=== PATIENT | male | born 1980 | race Two or more races ===

== ENCOUNTER 2025-08-30 18:38 | Emergency (ER) | payer OTHER, BC ==
[~2025-08-30] VITALS: Ht 182.9 cm; Wt 176.2 kg
[2025-08-30 19:28] LABS: Hematocrit 44.6 % (41.0-53.0); Hemoglobin 15.8 g/dL (13.5-17.5); Mean Corpuscular Hemoglobin 31.2 pg (28.0-32.0); Mean Corpuscular Volume 88.0 fL (80.0-100.0); Nucleated Red Blood Cells % 0.3 %
--- NOTE | 2025-08-30 19:30 | DVH ---
CHEST RADIOGRAPH INDICATION: hemoptysis cough TECHNIQUE: Single frontal view of the chest was obtained COMPARISON: None FINDINGS/IMPRESSION: The lungs are clear. The cardiomediastinal silhouette is unremarkable. No pleural effusion or pneumothorax. No acute osseous abnormality. The lateral aspect of the left lower lung is excluded from field of view.
[2025-08-30 19:37] LABS: Chloride 106 mmol/L (98-107); Potassium 4.1 mmol/L (3.5-5.1); Sodium 141 mmol/L (136-145)
[2025-08-30 19:38] LABS: Anion Gap 11 (5-15); Calcium 9.2 mg/dL (8.7-10.4); Carbon Dioxide 24 mmol/L (20-31)
[2025-08-30 19:42] LABS: INR 0.97 (0.9-1.15); Partial Thromboplastin Time 29.6 SEC (24.5-34.5); Prothrombin Time 10.3 sec (9.3-11.8)
[2025-08-30 19:43] LABS: BUN/Creatinine Ratio 9.0 (10.0-20.0); Glucose 104 mg/dL (74-106)
[2025-08-30 19:44] LABS: Blood Urea Nitrogen 9 mg/dL (9-23)
--- NOTE | 2025-08-30 19:46 | ED.PDOC ---
History of Present Illness HPI Comments 45 y/o morbidly obese M presents with c/c of productive cough with bloody sputum production. Patient reports having productive cough with nasal congestion since 08/24/25. Last night and today, patient reports on coughing up bright-red, bloody sputum. Denies any shortness of breath, fever, chills, or further acute symptoms. No relief with [id number] cough medications. No history of prior respiratory diseases. Current nicotine vape and former tobacco cigarette user Chief Complaint: Cough Time Seen by MD: 18:50 Reviewed Notes: Nurses Notes, Medications, Allergies Allergies: Coded Allergies: NO KNOWN ALLERGIES (Unverified , 08/30/25) Home Meds Active Scripts Promethazine-Dm (Promethazine Dm 6.25-15 mg/5Ml) 1 Danay Danay, 5 ML PO Q6HP PRN, #100 ML Prov:CURT NIÑO MD 08/30/25 Prednisone (Prednisone) 20 Mg Tab, 20 MG PO BID for 4 Days, #8 TAB Prov:CURT NIÑO MD 08/30/25 Azithromycin (Azithromycin) 500 Mg Tab, 1 TAB PO DAILY for 5 Days, #5 TAB Prov:CURT NIÑO MD 08/30/25 Albuterol Sulfate (Albuterol Sulfate Hfa) 108 Mcg/Act Aer, 108 MCG IN Q6HP PRN, #1 AER Prov:CURT NIÑO MD 08/30/25 Information Source: Patient Mode of Arrival: Ambulatory Severity: Moderate Timing: Days Duration: Since onset Prehospital treatment: None Past Medical History PAST MEDICAL HISTORY: Denies Surgical History: Denies all surgeries Social History Smoker: Other (current nicotine vape user, former tobacco cigarette user ) Alcohol: Denies ETOH Use Drugs: Denies Drug Use All Other Systems: Reviewed and Negative (As per HPI) Physical Exam General Appearance: Mild Distress, Obese HEENT: Normal ENT Inspection (nasal congestion ), Pharynx Normal, TMs Normal, Other Neck: Full Range of Motion, Non-Tender, Normal, Normal Inspection Respiratory: Chest Non-Tender, Lungs Clear, No Accessory Muscle Use, No Respiratory Distress, Normal Breath Sounds Cardiovascular: No Edema, No JVD, No Murmur, No Gallop, Normal Peripheral Pulses, Regular Rate/Rhythm Breast Exam: Deferred Gastrointestinal: No Organomegaly, Non Tender, No Pulsatile Mass, Normal Bowel Sounds, Soft Genitalia: Deferred Pelvic: Deferred Rectal: Deferred Extremities: No calf tenderness, Normal capillary refill, Normal inspection, Normal range of motion, Non-tender, No pedal edema Musculoskeletal : Apperance: Normal Neurologic: Alert, clinical trials specialist II-XII nml as Tested, No Motor Deficits, Normal Affect, Normal Mood, No Sensory Deficits Cerebellar Function: Normal Reflexes: Normal Skin: Dry, Normal Color, Warm Lymphatic: No Adenopathy Was a procedure done? Was a procedure done?: No Differential Dx Considerations may include: URI, PNA, viral, PE, ACS, NC, among others X-Ray, Labs, Meds, VS Vital Signs Date Time Temp Pulse Resp B/P (MAP) Pulse Ox O2 Delivery O2 Flow Rate FiO2 08/30/25 20:33 Room Air* 0 21 08/30/25 20:33 98.7 86 16 131/86 (101) 95 98.7 08/30/25 18:39 98.8 80 20 134/98 95 98.8 Lab Test 08/30/25 19:08 Range/Units White Blood Count 8.9 4.4-10.8 10^3/uL Red Blood Count 5.06 4.5-5.90 10^6/uL Hemoglobin 15.8 13.5-17.5 g/dL Hematocrit 44.6 41.0-53.0 % Mean Corpuscular Volume 88.0 80.0-100.0 fL Mean Corpuscular Hemoglobin 31.2 28.0-32.0 pg Mean Corpuscular Hemoglobin Concent 35.5 32.0-36.0 g/dL Red Cell Distribution Width 12.7 11.8-14.3 % Platelet Count 234 140-450 10^3/uL Mean Platelet Volume 6.0 L 6.9-10.8 fL Neutrophils (%) (Auto) 70.1 37.0-80.0 % Lymphocytes (%) (Auto) 18.7 10.0-50.0 % Monocytes (%) (Auto) 8.4 0.0-12.0 % Eosinophils (%) (Auto) 2.6 0.0-7.0 % Basophils (%) (Auto) 0.2 0.0-2.0 % Neutrophils # (Auto) 6.3 1.6-8.6 10 ^3/uL Lymphocytes # (Auto) 1.7 0.4-5.4 10 ^3/uL Monocytes # (Auto) 0.7 0-1.3 10 ^3/uL Eosinophils # (Auto) 0.2 0-0.8 10 ^3/uL Basophils # (Auto) 0 0-0.2 10 ^3/uL Nucleated Red Blood Cells 0.3 % Prothrombin Time 10.3 9.3-11.8 sec Prothrombin Time INR 0.97 0.9-1.15 Activated Partial Thromboplast Time 29.6 24.5-34.5 SEC Sodium Level 141 136-145 mmol/L Potassium Level 4.1 3.5-5.1 mmol/L Chloride Level 106 98-107 mmol/L Carbon Dioxide Level 24 20-31 mmol/L Anion Gap 11 5-15 Blood Urea Nitrogen 9 9-23 mg/dL Creatinine 1.00 0.700-1.30 mg/dL Glomerular Filtration Rate Calc 93 >90 mL/min BUN/Creatinine Ratio 9.0 L 10.0-20.0 Serum Glucose 104 74-106 mg/dL Calcium Level 9.2 8.7-10.4 mg/dL Current Medications Medications (Trade) Dose Ordered Sig/Cady Route Start Time Stop Time Status Last Admin Prednisone 20 mg ONCE ONCE PO 08/30/25 20:15 08/30/25 20:16 DC 08/30/25 20:29 Azithromycin (Zithromax Tablet) 500 mg ONCE ONCE PO 08/30/25 20:15 08/30/25 20:16 DC 08/30/25 20:30 Promethazine HCl/ Dextromethorphan (Phenergan-Dm) 5 ml ONCE ONCE PO 08/30/25 20:15 08/30/25 20:16 DC 08/30/25 20:[address] [address] Ph: [phone] DIAGNOSTIC IMAGING Diagnostic Imaging Report : [id number] Signed PATIENT: DOMINIC WOMACK ACCT: [id number] UNIT: [id number] : 1980 LOC: ER ROOM / BED: / AGE / SEX: 45 / M ADM STATUS: REG ER SERVICE [id number] ORDERING PHYSICIAN: CURT NIÑO MD PROCEDURE(s): CXR1 - CHEST XRAY 1 VIEW REASON: hemoptysis cough ORDER NUMBER(s): [id number], ACCESSION NUMBER(s): [id number] CHEST RADIOGRAPH INDICATION: hemoptysis cough TECHNIQUE: Single frontal view of the chest was obtained COMPARISON: None FINDINGS/IMPRESSION: The lungs are clear. The cardiomediastinal silhouette is unremarkable. No pleural effusion or pneumothorax. No acute osseous abnormality. The lateral aspect of the left lower lung is excluded from field of view. ATED BY: RAYSHAWN JAY MD DICTATED DATE/TIME: 08/30/251926 SIGNED BY: RAYSHAWN JAY MD SIGNED DATE/TIME: 08/30/251926 CC: Time of 1ST Reevaluation: 19:20 Reevaluation 1ST: Unchanged Patient Education/Counseling: Diagnosis, Treatment, Need For Follow Up Family Education/Counseling: No Family Present SEPSIS Sepsis Screen Date sepsis recognized/suspect: Aug 30, 2025 Time Sepsis recognized/suspect: 1838 Recent Procedure: No On Antibiotic Therapy: No Respiratory Rate >20: No Heart Rate >90: No Temp<36 C (96.8 F) or >38.3 C: No SBP <90 or MAP <65 mmHG: No New Acute Mental Status Change: No Is the patient on CPAP, BIPAP,: No Physician Orders Chest Xray 1 View (08/30/25 18:58) Vital Signs Date Time Temp Pulse Resp B/P (MAP) Pulse Ox O2 Delivery O2 Flow Rate FiO2 08/30/25 20:33 Room Air* 0 21 08/30/25 20:33 98.7 86 16 131/86 (101) 95 98.7 08/30/25 18:39 98.8 80 20 134/98 95 98.8 Laboratory Tests Test 08/30/25 19:08 White Blood Count 8.9 10^3/uL (4.4-10.8) Medications Medications Dose Ordered Sig/Cady Route Start Time Stop Time Status Last Admin Dose Admin Azithromycin 500 mg ONCE ONCE PO 08/30/25 20:15 08/30/25 20:16 DC 08/30/25 20:30 Prednisone 20 mg ONCE ONCE PO 08/30/25 20:15 08/30/25 20:16 DC 08/30/25 20:29 Promethazine HCl/ Dextromethorphan 5 ml ONCE ONCE PO 08/30/25 20:15 08/30/25 20:16 DC 08/30/25 20:29 Departure 1 Departure Time of Disposition: 21:00 Impression: Primary Impression: Cough with hemoptysis Additional Impression: URI (upper respiratory infection) Disposition: HOME / SELF CARE / HOMELESS Condition: Stable e-Prescriptions Promethazine-Dm (Promethazine Dm 6.25-15 mg/5Ml) 1 Danay Danay 5 ML PO Q6HP PRN, #100 ML Prov: CURT NIÑO MD 08/30/25 Prednisone (Prednisone) 20 Mg Tab 20 MG PO BID for 4 Days, #8 TAB Prov: CURT NIÑO MD 08/30/25 Azithromycin (Azithromycin) 500 Mg Tab 1 TAB PO DAILY for 5 Days, #5 TAB Prov: CURT NIÑO MD 08/30/25 Albuterol Sulfate (Albuterol Sulfate Hfa) 108 Mcg/Act Aer 108 MCG IN Q6HP PRN, #1 AER Prov: CURT NIÑO MD 08/30/25 Discharged With: Self Critical Care Note Critical Care Time?: No Stability Stability form required: No Heart Score Heart Score: Heart Score Response (Comments) Value History N/A 0 EKG N/A 0 Age N/A 0 Risk Factors N/A 0 Troponin N/A 0 Total 0 I personally scribed for CURT NIÑO MD ([email or web address]) on 08/30/25 at 19:46. Electronically submitted by Eleazar Muniz ([email or web address]). I personally scribed for CURT NIÑO MD ([email or web address]) on 08/30/25 at 19:47. Electronically submitted by Eleazar Muniz ([email or web address]). CURT NIÑO MD Aug 30, 2025 19:46
[2025-08-30] MEDS ORDERED: ALBU108A5 IN (20:09)
[2025-08-30] MEDS ORDERED: AZIT500T66 PO (20:09)
[2025-08-30] MEDS ORDERED: PRED20TA2 PO (20:09)
[2025-08-30] MEDS ORDERED: PROM1SOL4 PO (20:12)
[2025-08-30] MEDS: predniSONE 20 MG TAB PO ONE (20:29)
[2025-08-30] MEDS: PROMETHAZINE-DM 5 ML ORAL SYRUP PO ONE (20:29)
[2025-08-30] MEDS: AZITHROMYCIN 250 MG TAB PO ONE (20:30)
[2025-08-30 20:33] VITALS: BP 131/86; PULSE 86; RESP 16; TEMP 98.7; O2SAT 95
== END 2025-08-30 20:55 | disposition home or self-care (01) ==
LOC: ER 18:38
DX: J06.9 Acute upper respiratory infection, unspecified (principal); Z87.891 Personal history of nicotine dependence
CPT/HCPCS: 36415; 71045; 80048; 85025; 85610; 85730; 99284; J7512